=== PATIENT | female | born 1990 | race Caucasian/White ===

== ENCOUNTER 2020-11-07 10:09 | Emergency (ER) | payer MEDICARE, SELFPAY ==
[2020-11-07 10:30] VITALS: BP 127/81; PULSE 97; RESP 16; TEMP 37.8; O2SAT 99
--- NOTE | 2020-11-07 10:49 | ED.FEMALEGU ---
HPI - Female Genitourinary General Chief complaint: Urogenital-Female Stated complaint: UTI Time Seen by Provider: 11/07/20 10:31 Source: patient and RN notes reviewed Mode of arrival: ambulatory Limitations: no limitations History of Present Illness HPI Narrative: Patient presents today requesting screening for STDs. She recently broke up with her boyfriend and states that she is having some lower abdominal discomfort. Denies vaginal discharge or odor, dysuria, hematuria. She has not been notified that her partner has an STD. Patient is also complaining of intermittent vomiting, diarrhea, yeast infections, and night sweats for months . She does not have a PCP. She was seen in the ER at [facility] last week where she was given Zofran for these vomiting symptoms after she was evaluated. States she was not given a concrete diagnosis. She believes that the symptoms equate to STDs as well. MD elicited complaint: possible STD Related Data Home Medications Medication Instructions Recorded Confirmed aripiprazole 10 mg PO DAILY 11/07/20 11/07/20 carbamazepine 200 mg PO BID 11/07/20 11/07/20 Allergies Allergy/AdvReac Type Severity Reaction Status Date / Time chlorpromazine Allergy Itching Verified 11/07/20 10:33 [From Thorazine] Penicillins Allergy Hives Verified 11/07/20 10:33 Sulfa (Sulfonamide Allergy Hives Verified 11/07/20 10:33 Antibiotics) ziprasidone [From Geodon] Allergy Hallucinati Verified 11/07/20 10:33 ng haloperidol [From Haldol] AdvReac Other Verified 11/07/20 10:33 Review of Systems Review of Systems: Narrative: CONSTITUTIONAL: Denies body aches, fever, chills. + Night sweats. EYES: Denies visual changes, redness, or discharge. ENT: Denies rhinorrhea, congestion, sore throat, or otalgia. CARDIOVASCULAR: Denies chest pain, palpitations, or edema. RESPIRATORY: Denies cough or dyspnea. GASTROINTESTINAL: + Vomiting, diarrhea, lower abdominal discomfort GENITOURINARY: Denies dysuria or hematuria. SKIN: Denies rash, itching, or wounds. MUSCULOSKELETAL: Denies back pain, joint pain, or myalgia. NEUROLOGIC: Denies headache, numbness, tingling, or weakness. PSYCH: Denies depression or anxiety. [facility] Past Medical History Medical History (Updated 11/07/20 @ 15:37 by Marilyn Benedict, FULL TIME PARAMEDIC, ) Bipolar disorder Diabetes Nonalcoholic fatty liver disease Comments At time of signature, I have reviewed and agree with nursing past medical, surgical, social and family history unless otherwise noted. Please see nursing chart for further information. There is no relevant family history pertinent to the presenting complaint Exam Narrative: Exam Narrative: GENERAL: Well-appearing, over-nourished, and in no acute distress. HEAD: Normocephalic, atraumatic. EYES: EOMI. No redness or drainage. Conjunctivae normal. ENT: Mucous membranes pink and moist. NECK: Normal AROM. Supple. No lymphadenopathy. CHEST: No respiratory distress. Clear to auscultation. HEART: Regular rate and rhythm. No murmur appreciated. Normal peripheral pulses. ABDOMEN: Soft, nontender, nondistended, normal active bowel sounds. MUSCULOSKELETAL: No bony tenderness. EXTREMITIES: Normal range of motion. No edema. SKIN: Warm, dry, no rash. Capillary refill normal. Normal skin turgor. NEURO: No focal deficits. Alert and oriented x3. Gait steady. PSYCH: Normal affect. No signs of depression or anxiety. Course Course Emergency Course: We will treat patient for gonorrhea, chlamydia, and trichomonas at this time. Have instructed patient to follow-up with the PCP regarding her night sweats. 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 Vital Signs Vital signs: Vital Signs Temperature 100.0 F H 11/07/20 10:30 Pulse Rate 97 11/07/20 10:30 Respiratory Rate 16 11/07/20 10:30 Blood P
[2020-11-07] MEDS: LIDOCAINE HCL 1% LOCAL INJ 20 ML VIAL IM (11:04)
[2020-11-07] MEDS: cefTRIAXone 250 MG VIAL 500 MG IM (11:04)
== END 2020-11-07 11:27 | disposition home or self-care (01) ==
PROVIDERS: Emergency Provider Nurse Practitioner
DX: Z20.2 Contact with and (suspected) exposure to infections with a predominantly sexual mode of transmission (principal); F31.9 Bipolar disorder, unspecified; E11.9 Type 2 diabetes mellitus without complications; K76.0 Fatty (change of) liver, not elsewhere classified
CPT/HCPCS: 81003; 87491; 87591; 87661; 96372; 99204; G0463; J0696

== ENCOUNTER 2021-03-08 12:11 | Emergency (ER) | payer MEDICARE, SELFPAY ==
[2021-03-08 12:22] VITALS: BP 132/81; PULSE 58; RESP 16; TEMP 37.3; O2SAT 99
--- NOTE | 2021-03-08 12:33 | ED.GENADULT ---
HPI - General Adult General Chief complaint: Urogenital-Female Stated complaint: uti/yeast infection Source: patient Mode of arrival: ambulatory Limitations: no limitations History of Present Illness HPI narrative: Patient is a 30-year-old female who presents to the [facility] via POV for evaluation of a vaginal problem that began approximately 1 week ago. Additionally, she reports vaginal redness, burning, and itching. Denies taking OTC meds for symptoms. Showering improves symptoms and sweating worsen symptoms. History of yeast infections. Today symptoms are identical to previous infections. Denies history of STDs. Patient states she had a full STD panel done at the beginning of February which was negative. She has had one partner since her negative test although is not concerned with an STD. Related Data Home Medications Medication Instructions Recorded Confirmed aripiprazole 10 mg PO DAILY 11/07/20 11/07/20 hydroxyzine HCl 03/08/21 hydroxyzine pamoate 03/08/21 nicotine 03/08/21 topiramate 03/08/21 topiramate 03/08/21 trazodone 03/08/21 03/08/21 Allergies Allergy/AdvReac Type Severity Reaction Status Date / Time chlorpromazine Allergy Itching Verified 11/07/20 10:33 [From Thorazine] Penicillins Allergy Hives Verified 11/07/20 10:33 Sulfa (Sulfonamide Allergy Hives Verified 11/07/20 10:33 Antibiotics) ziprasidone [From Geodon] Allergy Hallucinati Verified 11/07/20 10:33 ng haloperidol [From Haldol] AdvReac Other Verified 11/07/20 10:33 Review of Systems Review of Systems: Pertinent negatives: fever, chills, sweats, change in appetite, poor p.o. intake, malaise, recent weight loss, myalgias, lymphadenopathy, headache, dizziness, STD exposure, painful intercourse, abdominal pain, constipation, nausea, vomiting, diarrhea, abdominal cramping, dysuria, hematuria, urinary frequency/urgency, back pain, urinary incontinence, vaginal bleeding/discharge, shortness of breath, chest pain, and heart palpitations/murmurs. [facility] Past Medical History Medical History (Updated 03/08/21 @ 12:46 by Jessica Meade, AVICULTURIST, BC) Bipolar disorder Diabetes Nonalcoholic fatty liver disease Comments I have reviewed and agree with the patient's past medical, surgical, social, and family hx as documented by the RN. There is no relevant family history pertinent to the presenting complaint. Exam Narrative: GENERAL: Well-appearing, well-nourished, and in no acute distress. HEAD: Normocephalic, atraumatic. NECK: Supple. No lymphadenopathy or nuchal rigidity. CHEST: Lung sounds are clear to auscultation in bilateral lung [place]. No respiratory distress. HEART: Regular rate and rhythm. No murmur, gallop, or rub heard. ABDOMEN: Obese. Soft, non-tender, non-distended, active bowel sounds are present in all 4 quadrants although bowel sounds are distant. No guarding. No rebound tenderness. No pulsatile or palpable abdominal mass(es). No CVAT : Refused EXTREMITIES: Normal range of motion. No edema. SKIN: Warm, dry, no rash. No skin color changes. Excellent turgor. NEURO: No focal deficits. Alert and oriented x3. SPECIAL OBSERVATIONS: Smiling. Laughing. No evidence of discomfort. Course Course Emergency Course: The patient/guardian displays adequate decision making capability and despite a detailed discussion of alternatives, benefits, risks, and consequences refuses STD testing Vital Signs Vital signs: Vital Signs Temperature 99.1 F 03/08/21 12:22 Pulse Rate 58 L 03/08/21 12:22 Respiratory Rate 16 03/08/21 12:22 Blood Pressure 132/81 03/08/21 12:22 Pulse Oximetry 99 03/08/21 12:22 Temperature 99.1 F 03/08/21 12:22 Pulse Rate 58 L 03/08/21 12:22 Respiratory Rate 16 03/08/21 12:22 Blood Pressure 132/81 03/08/21 12:22 Pulse Oximetry 99 03/08/21 12:22 Due to an elevated blood pressure, I had a detailed discussion with the patient and/or guardian regarding the nee
== END 2021-03-08 12:50 | disposition home or self-care (01) ==
PROVIDERS: Emergency Provider Nurse Practitioner Family
DX: N89.8 Other specified noninflammatory disorders of vagina (principal); F31.9 Bipolar disorder, unspecified; E11.9 Type 2 diabetes mellitus without complications; K76.0 Fatty (change of) liver, not elsewhere classified
CPT/HCPCS: 99213; G0463

== ENCOUNTER 2021-04-15 09:22 | Emergency (ER) | payer OTHER, SELFPAY ==
[2021-04-15 09:30] VITALS: BP 139/80; PULSE 72; RESP 16; TEMP 37; O2SAT 99
== END 2021-04-15 09:33 | disposition left against medical advice (07) ==
LOC: EXPCOLL 09:27
PROVIDERS: Emergency Provider Nurse Practitioner
DX: Z53.21 Procedure and treatment not carried out due to patient leaving prior to being seen by health care provider (principal)
CPT/HCPCS: 99199

== ENCOUNTER 2021-08-15 15:17 | Emergency (ER) | payer OTHER, SELFPAY ==
[2021-08-15 15:43] VITALS: BP 156/68; PULSE 92; RESP 15; TEMP 36.2; O2SAT 96
[2021-08-15 16:16] LABS: Add Urine Microscopic? YES; Appearance Urine Cloudy (Clear); Bilirubin Urine Negative (Negative); Blood Urine Negative (Negative); Color Urine Amber (Yellow); Glucose Urine UA Negative (Negative); Ketones Urine Trace mg/dL (Negative); Leukocyte Esterase Ur Negative LEU/UL (Negative); Mucus Urine Rare /lpf; Nitrate Urine Negative (Negative); Protein Urine Negative (Negative); RBC Urine 0-2 /hpf (0-2); Specific Grav Ur 1.024 (1.001-1.035); Squamous Epithelial Cell Urine Moderate /hpf (Few); Urobilinogen Urine Negative mg/dL (<2.0); WBC Urine 0-3 /hpf
[2021-08-15 16:28] LABS: Basophils Absolute Auto 0.1 K/mm3 (0.0-0.1); Basophils Percent Auto 0.4 % (0.2-1.2); Eosinophils Absolute Auto 0.5 K/mm3 (0-0.3); Eosinophils Percent Auto 4.3 % (0-4.4); Hemoglobin 16.5 g/dL (12.0-15.0); Immature Granulocyte Absolute 0.05 K/mm3 (0.00-0.031); Immature Granulocyte Percent A 0.4 % (0-0.5); Lymphocytes Absolute Auto 2.89 K/mm3 (0.9-3.2); Lymphocytes Percent Auto 23.5 % (18.3-44.2); Mean Corpuscular HGB Conc 34.4 g/dl (32-36); Mean Corpuscular Hemoglobin 31.6 pg (26-34); Mean Platelet Volume 9.3 fl (7.4-10.4); Monocytes Absolute Auto 1.2 K/mm3 (0.1-0.6); Monocytes Percent Auto 9.3 % (2.6-8.5); Neutrophils Absolute Auto 7.6 K/mm3 (1.3-6.7); Neutrophils Percent Auto 62.1 % (45.5-73.1); Platelet Count Result 281 k/mm3 (150-375); Red Blood Count 5.22 M/mm3 (4.2-5.4); Red Cell Distribution Width 13.2 % (11.5-14.5); White Blood Count 12.3 K/mm3 (4.5-10.0)
[2021-08-15 16:36] LABS: Alanine Aminotransferase 17 U/L (4-35); Albumin Level 4.1 g/dL (3.5-5.1); Alkaline Phosphatase 91 U/L (38-126); Anion Gap 5 mmol/L (8-16); Aspartate Amino Transferase 21 U/L (14-36); Bilirubin,Total 0.2 mg/dL (0.2-1.3); Blood Urea Nitrogen 13 mg/dL (7-17); Calcium 8.7 mg/dL (8.4-10.2); Carbon Dioxide 25 mmol/L (22-30); Chloride 107 mmol/L (98-107); Estimated CRCL calculation 121 ml/min; Estimated Glomerular Filt Rate > 60; Glucose 96 mg/dL (65-110); Lipase 108 U/L (23-300); Potassium 4.1 mmol/L (3.4-5.0); Sodium 137 mmol/L (137-145)
== END 2021-08-15 18:51 | disposition left against medical advice (07) ==
LOC: ANHED 18:47
PROVIDERS: Emergency Provider Emergency Medicine
DX: R10.9 Unspecified abdominal pain (principal); Z53.21 Procedure and treatment not carried out due to patient leaving prior to being seen by health care provider
CPT/HCPCS: 36415; 80053; 81001; 81025; 83690; 85025; 99199

== ENCOUNTER 2022-05-12 08:07 | Emergency (ER) | payer OTHER, SELFPAY ==
--- NOTE | 2022-05-12 08:15 | ED.GENADULT ---
HPI - General Adult General Chief complaint: Upper Respiratory Infection Stated complaint: sob/flu sx Time Seen by Provider: 05/12/22 08:15 Source: patient Mode of arrival: ambulatory History of Present Illness HPI narrative: 32-year-old female patient presents to the [facility] with complaints of a cough for the past 2-3 weeks, runny nose for the past month. Patient states she does have shortness of breath at times. Patient states she is an active smoker and does smoke in the house. Patient states her cough is typically worse when she is in house and does get better when she is out fracture. Patient denies any fevers, body aches or chills. Denies any abdominal pain, nausea, vomiting or diarrhea. Patient denies any ear pain or sore throat. Patient states she has been taking [id number] Delsym and some nasal sprays to help with her symptoms. Related Data Home Medications Medication Instructions Recorded Confirmed aripiprazole 10 mg tablet 10 mg PO DAILY 11/07/20 05/12/22 hydroxyzine HCl 50 mg tablet 50 mg PO DAILY 03/08/21 05/12/22 topiramate 50 mg tablet 50 mg PO DAILY 03/08/21 05/12/22 trazodone 50 mg tablet 50 mg PO DAILY 03/08/21 05/12/22 atomoxetine 80 mg capsule 80 mg PO DAILY 05/12/22 05/12/22 atorvastatin 10 mg tablet 10 mg PO DAILY 05/12/22 05/12/22 lithium carbonate 300 mg 300 mg PO DAILY 05/12/22 05/12/22 tablet,extended release pantoprazole 40 mg tablet,delayed 40 mg PO DAILY 05/12/22 05/12/22 release quetiapine 100 mg tablet 100 mg PO DAILY 05/12/22 05/12/22 Allergies Allergy/AdvReac Type Severity Reaction Status Date / Time chlorpromazine Allergy Itching Verified 05/12/22 08:14 [From Thorazine] Penicillins Allergy Hives Verified 05/12/22 08:14 Sulfa (Sulfonamide Allergy Hives Verified 05/12/22 08:14 Antibiotics) ziprasidone [From Geodon] Allergy Hallucinati Verified 05/12/22 08:14 ng haloperidol [From Haldol] AdvReac Other Verified 05/12/22 08:14 Review of Systems Review of Systems: CONSTITUTIONAL: Denies fever, chills, or sweats. EYES: Denies visual changes, redness, or discharge. ENT: Positive rhinorrhea, denies congestion, sore throat, or otalgia. CARDIOVASCULAR: Denies chest pain, palpitations, or edema. RESPIRATORY: Positive cough with intermittent dyspnea. GASTROINTESTINAL: Denies abdominal pain, nausea, vomiting, or diarrhea. GENITOURINARY: Denies dysuria or hematuria. SKIN: Denies rash or itching. MUSCULOSKELETAL: Denies back pain, joint pain, or myalgia. NEUROLOGIC: Denies headache, numbness, or weakness. PSYCHIATRIC: Denies anxiety or depression. [facility] Past Medical History Medical History Bipolar disorder Carpal tunnel syndrome Chronic interstitial cystitis Diabetes High cholesterol Nonalcoholic fatty liver disease PCOS (polycystic ovarian syndrome) PCOS (polycystic ovarian syndrome) Surgical History Surgical History Delivery by section (09/26/15) primary c/s cord around babys neck History of biopsy of bladder History of carpal tunnel release right wrist History of gynecological procedure (~11/11/19) endometrial ablation History of liver biopsy History of orthopedic surgery (05/13/18) right ankle surgery hardware installed History of orthopedic surgery right wrist cyst removed Family History Family History Father Diabetes mellitus Acute myocardial infarction maternal grand father Grandparent Breast cancer maternal grandmother Mother Lung cancer Social History Social History (Updated 05/12/22 @ 08:35 by LAURA Kramer) Smoking status: Current every day smoker Comments At the time of my signature I agree with nursing past medical history, surgical, social, and family history. There is no relevant family history pertinent to the presenting com
[2022-05-12 08:22] VITALS: BP 126/69; PULSE 90; RESP 16; TEMP 36.9; O2SAT 98
[2022-05-12 08:29] VITALS: BP 126/69; PULSE 90; RESP 16; TEMP 36.9; O2SAT 98
[2022-05-12] MEDS: ALBUTEROL SULFATE NEB 2.5 MG/3 ML INH INHALATION (08:58)
[2022-05-12] MEDS: IPRATROPIUM BR 0.02% INH SOLN 0.5 MG/2.5 ML VIAL INHALATION (08:59)
== END 2022-05-12 09:37 | disposition home or self-care (01) ==
PROVIDERS: Emergency Provider Nurse Practitioner Family; PCP Internal Medicine Gastroenterology
DX: J20.8 Acute bronchitis due to other specified organisms (principal); F17.290 Nicotine dependence, other tobacco product, uncomplicated; E11.9 Type 2 diabetes mellitus without complications; E78.00 Pure hypercholesterolemia, unspecified; E28.2 Polycystic ovarian syndrome; K76.0 Fatty (change of) liver, not elsewhere classified
CPT/HCPCS: 94640; 99213; G0463

== ENCOUNTER 2022-07-06 16:03 | Emergency (ER) | payer OTHER, SELFPAY ==
[2022-07-06 16:15] VITALS: BP 136/73; PULSE 79; RESP 12; TEMP 36.7; O2SAT 100
--- NOTE | 2022-07-06 16:47 | ED.URI ---
HPI - URI/Sore Throat General Chief Complaint: Upper Respiratory Infection Stated Complaint: Eyes Irritation/Cough/Sinus Time Seen by Provider: 07/06/22 16:45 Source: patient Mode of arrival: ambulatory Limitations: no limitations History of Present Illness HPI Narrative: patient is a 32-year-old female that started with vomiting, diarrhea and congestion 2 weeks ago. patient having congestion, eye irritation and drainage, and productive cough. patient has been using Visine for her eyes and Mucinex DM with mild relief. patient also reports new dog in house for the last 6 months, states dog is starting to shed. Related Data Home Medications Medication Instructions Recorded Confirmed aripiprazole 10 mg tablet 10 mg PO DAILY 11/07/20 07/06/22 hydroxyzine HCl 50 mg tablet 50 mg PO DAILY 03/08/21 07/06/22 topiramate 50 mg tablet 50 mg PO DAILY 03/08/21 07/06/22 trazodone 50 mg tablet 50 mg PO DAILY 03/08/21 07/06/22 atomoxetine 80 mg capsule 80 mg PO DAILY 05/12/22 07/06/22 atorvastatin 10 mg tablet 10 mg PO DAILY 05/12/22 07/06/22 lithium carbonate 300 mg 300 mg PO DAILY 05/12/22 07/06/22 tablet,extended release pantoprazole 40 mg tablet,delayed 40 mg PO DAILY 05/12/22 07/06/22 release quetiapine 100 mg tablet 100 mg PO DAILY 05/12/22 07/06/22 Allergies Allergy/AdvReac Type Severity Reaction Status Date / Time chlorpromazine Allergy Itching Verified 07/06/22 16:24 [From Thorazine] Penicillins Allergy Hives Verified 07/06/22 16:24 Sulfa (Sulfonamide Allergy Hives Verified 07/06/22 16:24 Antibiotics) ziprasidone [From Geodon] Allergy Hallucinati Verified 07/06/22 16:24 ng haloperidol [From Haldol] AdvReac Other Verified 07/06/22 16:24 Review of Systems Review of Systems: CONSTITUTIONAL: Denies malaise, chills, sweats, or fever.? EYES: Denies visual changes reports redness, or discharge.? ENT: Reports rhinorrhea, congestion denies sinus pain, otalgia and sore throat.? CARDIOVASCULAR: Denies chest pain, palpitations, or edema.? RESPIRATORY: Reports cough.? Denies dyspnea.? GASTROINTESTINAL: Denies abdominal pain, nausea, vomiting, diarrhea? SKIN: Denies rash or itching.? MUSCULOSKELETAL: Denies myalgia.? NEUROLOGIC: Denies headache All systems reviewed & are unremarkable except as noted in HPI and below PMFSH Past Medical History Medical History Bipolar disorder Carpal tunnel syndrome Chronic interstitial cystitis Diabetes High cholesterol Nonalcoholic fatty liver disease PCOS (polycystic ovarian syndrome) PCOS (polycystic ovarian syndrome) Surgical History Surgical History Delivery by section (09/26/15) primary c/s cord around babys neck History of biopsy of bladder History of carpal tunnel release right wrist History of gynecological procedure (~11/11/19) endometrial ablation History of liver biopsy History of orthopedic surgery (05/13/18) right ankle surgery hardware installed History of orthopedic surgery right wrist cyst removed Family History Family History (Updated 06/28/22 @ 12:46 by Homa Childress [facility]) Father Diabetes mellitus Acute myocardial infarction maternal grand father Grandparent Breast cancer maternal grandmother Rheumatoid arthritis maternal grandmother Mother Lung cancer Social History Social History (Updated 05/12/22 @ 08:35 by LAURA Kramer) Smoking status: Current every day smoker Comments At time of signature, agree with nursing past medical, surgical, social and family history. There is no relevant family history pertinent to the presenting complaint? Exam Narrative: GENERAL: Well-appearing, well-nourished, and in no acute distress.? HEAD: Normocephalic, atraumatic.? EYES: PERRLA, conjunctivae pink, and EOMI. No nystagmus.? ENT: Nares clear, turbinates pink, no rhinorrhea or epistaxis
== END 2022-07-06 17:22 | disposition home or self-care (01) ==
PROVIDERS: Emergency Provider Nurse Practitioner Family; PCP Internal Medicine Gastroenterology
DX: J32.9 Chronic sinusitis, unspecified (principal); J06.9 Acute upper respiratory infection, unspecified; E11.9 Type 2 diabetes mellitus without complications
CPT/HCPCS: 99213; G0463

== ENCOUNTER 2024-10-31 20:24 | Emergency (ER) | payer MEDICARE, SELFPAY ==
--- NOTE | ~2024-10-31 | XR_ITS ---
Portable chest x-ray Comparison: None Clinical History: Syncope Findings: Lungs are clear, without focal consolidation or pleural effusion. Cardiomediastinal silho uette is unremarkable. Chronic left rib fracture deformities are noted. Impression: No significant abnormality. Reviewed, dictated and finalized at [facility]. Impression: No significant abnormality.
--- NOTE | ~2024-10-31 | CT_ITS ---
Non-contrast Head CT History: Syncope, possible seizure Technique: Axial non-contrast imaging of the brain was performed. Dose reduction technique was used on this scan by utilizing automated exposure control and iterative reconstruction technique. The dose -length product (DLP) was 605.33 mGy-cm. Findings: There is no evidence of intracranial hemorrhage, mass lesion, or acute infarct. Brain par enchyma appears normal. The ventricles and subarachnoid spaces are normal in size. The calvarium ap pears normal. The visualized paranasal sinuses and mastoid air cells are clear. Impression: No significant abnormality seen. Reviewed, dictated and finalized at location . Impression: No significant abnormality seen.
[2024-10-31 20:26] VITALS: BP 147/85; PULSE 106; RESP 18; TEMP 37; O2SAT 97
--- NOTE | 2024-10-31 22:39 | PC.NURSE ---
1st call no answer
--- NOTE | 2024-10-31 22:56 | ECG_ITS ---
Test Date: 2024-10-31 23:57:21 Measurements Intervals [place] Rate: 84 P: 51 MI: 155 QRS: 23 QRSD: 90 T: 34 QT: 384 QTc: 457 Interpretive Statements SINUS RHYTHM BASELINE ARTIFACT- I, II, AVR, AVL, AVF, V1 NORMAL ECG No previous ECG available for comparison Electronically Signed On 11-01-2024 07:07:58 CDT by Mehrdad Carlson D.O.
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
[2024-10-31 23:30] LABS: Basophils Percent Auto 0.5 % (0.2-1.2); Eosinophils Absolute Auto 0.3 K/mm3 (0-0.3); Eosinophils Percent Auto 3.3 % (0-4.4); Hematocrit 41.7 % (37.0-47.0); Hemoglobin 13.7 g/dL (12.0-15.0); Immature Granulocyte Absolute 0.04 K/mm3 (0.00-0.031); Immature Granulocyte Percent A 0.5 % (0-0.5); Lymphocytes Absolute Auto 2.98 K/mm3 (0.9-3.2); Lymphocytes Percent Auto 35.5 % (18.3-44.2); Mean Corpuscular HGB Conc 32.9 g/dl (32-36); Mean Corpuscular Hemoglobin 29.6 pg (26-34); Mean Corpuscular Volume 90.1 fl (80-100); Mean Platelet Volume 8.9 fl (7.4-10.4); Monocytes Percent Auto 11.4 % (2.6-8.5); Neutrophils Absolute Auto 4.1 K/mm3 (1.3-6.7); Neutrophils Percent Auto 48.8 % (45.5-73.1); Platelet Count Result 226 k/mm3 (150-375); Red Blood Count 4.63 M/mm3 (4.2-5.4); White Blood Count 8.4 K/mm3 (4.5-10.0)
[2024-10-31 23:35] LABS: BEDSIDEPREGUCG Negative (Negative)
[2024-10-31 23:38] VITALS: BP 102/49; PULSE 86; RESP 15; O2SAT 100
[2024-10-31 23:39] LABS: Alanine Aminotransferase 19 U/L (6-35); Albumin Level 3.9 g/dL (3.5-5.1); Alkaline Phosphatase 67 U/L (38-126); Anion Gap 10 mmol/L (4-12); Aspartate Amino Transferase 25 U/L (14-36); Bilirubin,Total 0.4 mg/dL (0.2-1.3); Blood Urea Nitrogen 19 mg/dL (7-17); Calcium 8.9 mg/dL (8.4-10.2); Carbon Dioxide 23 mmol/L (22-30); Chloride 104 mmol/L (98-107); Estimated CRCL calculation 119 ml/min; Estimated Glomerular Filt Rate > 60; Ethanol < 10 mg/dL (<10); Glucose 118 mg/dL (65-110); Lactic Acid Reflex 1.5 mmol/L (0.7-2.0); Potassium 3.4 mmol/L (3.4-5.0); Sodium 137 mmol/L (137-145); Total Protein 7.2 g/dL (6.3-8.2)
[2024-10-31 23:44] LABS: Add Urine Microscopic? YES; Appearance Urine Cloudy (Clear); Bacteria Urine 1+ /hpf; Bilirubin Urine Negative (Negative); Blood Urine Negative (Negative); Color Urine Yellow (Yellow); Glucose Urine UA Negative (Negative); Ketones Urine Trace mg/dL (Negative); Leukocyte Esterase Ur 2+ LEU/UL (Negative); Nitrate Urine Negative (Negative); Non Pathogenic Casts 0-2; Protein Urine Trace mg/dL (Negative); Specific Grav Ur 1.034 (1.001-1.035); Squamous Epithelial Cell Urine Moderate /hpf (Few); WBC Urine 51-100 /hpf (0-3)
[2024-10-31 23:51] LABS: Troponin I < 0.012 ng/mL (0.000-0.034)
[2024-11-01 00:12] LABS: Hepatitis B Surface Antigen Negative (Negative)
[2024-11-01 00:17] LABS: HAV RESULT Negative (Negative); Hepatitis B Core IgM Result Negative (Negative)
[2024-11-01 00:21] LABS: HIV 1/2 Ab P24 Ag Result Negative (Negative)
[2024-11-01 00:29] LABS: Hepatitis C Virus Antibody Negative (Negative)
[2024-11-01 00:34] LABS: Barbiturate Screen Urine Negative (Negative); Benzodiazepines Screen Urine Negative (Negative); Cannabinoid Screen Urine Negative (Negative); Cocaine Screen Urine Negative (Negative); Methadone Screen Urine Negative (Negative); Opiate Screen Urine Negative (Negative); Phencyclidine Screen Urine Negative (Negative)
[2024-11-01 01:19] LABS: Amphetamine Screen Urine Positive (Negative)
--- NOTE | 2024-11-01 02:31 | PC.NURSE ---
Pt refused a shower
[2024-11-01 02:41] VITALS: BP 110/85; PULSE 81; RESP 13; O2SAT 99
[2024-11-01 04:07] VITALS: BP 110/85; PULSE 81; RESP 13; O2SAT 99
--- NOTE | 2024-11-01 04:10 | PC.NURSE ---
This RN went to give pt medication. pt not in room. exchange mechanic noticed pt leaving without medication and discharge paper at [id number]
--- NOTE | 2024-11-01 04:49 | PC.NURSE ---
This RN went to give pt her medication and pt has left.
== END 2024-11-01 04:07 | disposition home or self-care (01) ==
PROVIDERS: Emergency Provider Emergency Medicine; PCP Internal Medicine Gastroenterology
DX: R07.9 Chest pain, unspecified (principal); R55 Syncope and collapse; N39.0 Urinary tract infection, site not specified; F15.10 Other stimulant abuse, uncomplicated; T76.21XA Adult sexual abuse, suspected, initial encounter; Z11.4 Encounter for screening for human immunodeficiency virus [HIV]; E28.2 Polycystic ovarian syndrome; E78.00 Pure hypercholesterolemia, unspecified; E11.9 Type 2 diabetes mellitus without complications; K76.0 Fatty (change of) liver, not elsewhere classified; N30.10 Interstitial cystitis (chronic) without hematuria; F31.9 Bipolar disorder, unspecified; F17.200 Nicotine dependence, unspecified, uncomplicated; Z79.3 Long term (current) use of hormonal contraceptives; Z79.899 Other long term (current) drug therapy
CPT/HCPCS: 36415; 70450; 71045; 80053; 80074; 80307; 81001; 81025; 82077; 83605; 83735; 84443; 84484; 85025; 86703; 93005; 99284; G0432